=== PATIENT | male | born 1950 | race Caucasian/White ===

== ENCOUNTER 2022-07-10 17:55 | Inpatient (IN) ==
[2022-07-12] MEDS ORDERED: Acetaminophen 325 MG TABLET PO PRN (12:54)
[2022-07-12] MEDS ORDERED: Ondansetron ODT 4 MG TAB.RAPDIS SL PRN (12:54)
[2022-07-12] MEDS ORDERED: D5% in Water 1,000 ML IVC PRN (12:56)
[2022-07-12] MEDS ORDERED: Dextrose Gel 15 GM/37.5 ML TUBE PO PRN ×2 (12:56)
[2022-07-12] MEDS ORDERED: *HR* Dextrose 50 % in Water (Syg) 50 ML SYRINGE IVP PRN (12:56)
[2022-07-12 13:53] LABS: Bilirubin,Urine Negative (Negative); Blood,Urine Small (Negative); Clarity,Urine Clear (Clear); Color,Urine Yellow (Yellow); Glucose,Urine (UA) Normal (Normal); Ketones,Urine 15 mg/dL (Negative); Leukocyte Esterase,Urine Negative (Negative); Nitrite,Urine Negative (Negative); Protein,Urine Negative (Neg-Trace); Specific Gravity,Urine >= 1.030 (1.010-1.025); Urobilinogen,Urine Normal (Normal)
[2022-07-12 13:58] LABS: Squamous Epithelial Cell,Urine Few per hpf (None-Few); WBC,Urine 0-3 per hpf (0-3)
[2022-07-12 13:59] LABS: Bacteria,Urine None Seen per hpf (None-Few); Transitional Epi Cells,Urine Few per hpf (None-Few)
[2022-07-12] MEDS: diazePAM 2 MG TABLET PO PRN ×2 (14:29→22:08)
[2022-07-12] MEDS: *HR* OxyCODONE/APAP 5/325 TABLET PO PRN ×2 (15:02→22:06)
[2022-07-12] MEDS: *HR* Metformin 500 MG TABLET PO SCH (17:27)
[2022-07-12] MEDS: tiZANidine 4 MG TABLET PO PRN (17:28)
[2022-07-12] MEDS: *HR* Glimepiride 4 MG TABLET PO SCH (17:28)
[2022-07-12] MEDS: Insulin LISPRO 300 UNITS/3 ML VIAL SUBQ SCH ×2 (17:28→22:14)
[2022-07-12] MEDS: Pregabalin 75 MG CAPSULE PO SCH (22:08)
[2022-07-12] MEDS: Carbidopa/Levodopa 25/100 TABLET PO SCH (22:09)
[2022-07-12] MEDS: Sennosides 8.6 MG TABLET PO SCH (22:09)
[2022-07-13] MEDS: tiZANidine 4 MG TABLET PO PRN ×2 (02:39→16:40)
[2022-07-13] MEDS: *HR* OxyCODONE/APAP 5/325 TABLET PO PRN ×3 (02:39→20:55)
[2022-07-13 04:27] LABS: Hematocrit 23.5 % (37.5-50.1); Hemoglobin 7.8 g/dL (12.9-16.9); Mean Corpuscular HGB Conc 33.2 g/dL (31.6-35.5); Mean Corpuscular Volume 90.4 fL (83.0-100.0); Mean Platelet Volume 9.4 fL (9.4-12.4); Platelet Count 155 K/mcL (140-400); Red Cell Distribution Width 14.3 % (11.5-14.5); White Blood Count 4.1 K/mcL (4.3-11.1)
[2022-07-13 04:43] LABS: Alanine Aminotransferase 7 Units/L (7-52); Albumin 3.1 g/dL (3.5-5.7); Albumin/Globulin Ratio 1.4 (1.1-2.2); Alkaline Phosphatase 52 Units/L (34-104); Aspartate Amino Transferase 24 Units/L (13-39); BUN/Creatinine Ratio 24 (6-26); Bilirubin,Total 0.3 mg/dL (0.3-1.0); Blood Urea Nitrogen 17 mg/dL (8-23); Calcium 8.2 mg/dL (8.6-10.3); Carbon Dioxide 26 mEq/L (23-29); Chloride 107 mEq/L (98-107); Globulin 2.2 g/dL (2.4-3.5); Glucose 120 mg/dL (70-105); Magnesium 2.1 mg/dL (1.6-2.6); Osmolality,Calculated 293 (280-300); Potassium 3.8 mEq/L (3.5-5.1); Sodium 140 mEq/L (136-145); Total Protein 5.3 g/dL (6.4-8.9)
[2022-07-13] MEDS: *HR* Enoxaparin 40 MG/0.4 ML SYRINGE SQ SCH (04:44)
[2022-07-13] MEDS: Pregabalin 75 MG CAPSULE PO SCH ×2 (10:17→20:56)
[2022-07-13] MEDS: lisinopriL 5 MG TABLET PO SCH (10:17)
[2022-07-13] MEDS: *HR* Glimepiride 4 MG TABLET PO SCH ×2 (10:18→16:40)
[2022-07-13] MEDS: *HR* Metformin 500 MG TABLET PO SCH ×2 (10:18→16:40)
[2022-07-13] MEDS: Carbidopa/Levodopa 25/100 TABLET PO SCH ×2 (10:18→20:56)
[2022-07-13] MEDS: Sennosides 8.6 MG TABLET PO SCH ×2 (10:18→20:55)
[2022-07-13] MEDS: Insulin LISPRO 300 UNITS/3 ML VIAL SUBQ SCH ×4 (10:19→20:56)
[2022-07-13 12:42] LABS: Estimated Average Glucose 157 mg/dl; Hemoglobin A1C 7.1 %
[2022-07-13] MEDS: diazePAM 2 MG TABLET PO PRN (20:56)
[2022-07-14 04:39] LABS: Basophils % 0.4 %; Eosinophils # 0.1 K/mcL (0.0-0.6); Eosinophils % 1.6 %; Hematocrit 24.8 % (37.5-50.1); Hemoglobin 7.7 g/dL (12.9-16.9); Immature Granulocytes % 2.3 % (0-4); Lymphocytes # 0.8 K/mcL (0.6-4.6); Lymphocytes % 15.2 %; Mean Corpuscular Hemoglobin 29.2 pg (28.0-33.3); Mean Corpuscular Volume 93.9 fL (83.0-100.0); Mean Platelet Volume 9.6 fL (9.4-12.4); Monocytes # 0.7 K/mcL (0.0-1.3); Monocytes % 13.3 %; Neutrophils # 3.5 K/mcL (1.6-8.9); Nucleated Red Blood Cells 0.4 /100 WBC (0); Platelet Count 163 K/mcL (140-400); Red Blood Count 2.64 M/mcL (4.19-5.50); Red Cell Distribution Width 14.6 % (11.5-14.5); Segmented Neutrophils % 67.2 %; White Blood Count 5.1 K/mcL (4.3-11.1)
[2022-07-14 04:50] LABS: BUN/Creatinine Ratio 22 (6-26); Blood Urea Nitrogen 17 mg/dL (8-23); Carbon Dioxide 23 mEq/L (23-29); Chloride 108 mEq/L (98-107); Glucose 112 mg/dL (70-105); Osmolality,Calculated 290 (280-300); Potassium 3.8 mEq/L (3.5-5.1); Sodium 139 mEq/L (136-145)
[2022-07-14] MEDS: *HR* Enoxaparin 40 MG/0.4 ML SYRINGE SQ SCH (05:15)
[2022-07-14] MEDS: Insulin LISPRO 300 UNITS/3 ML VIAL SUBQ SCH ×4 (08:48→19:53)
[2022-07-14] MEDS: lisinopriL 5 MG TABLET PO SCH (08:49)
[2022-07-14] MEDS: Carbidopa/Levodopa 25/100 TABLET PO SCH ×2 (08:49→19:59)
[2022-07-14] MEDS: *HR* Glimepiride 4 MG TABLET PO SCH ×2 (08:49→16:37)
[2022-07-14] MEDS: Sennosides 8.6 MG TABLET PO SCH ×2 (08:49→20:00)
[2022-07-14] MEDS: Pregabalin 75 MG CAPSULE PO SCH ×2 (08:49→20:00)
[2022-07-14] MEDS: *HR* Metformin 500 MG TABLET PO SCH ×2 (08:49→16:37)
[2022-07-14] MEDS: *HR* OxyCODONE/APAP 5/325 TABLET PO PRN ×2 (08:52→19:59)
[2022-07-15 04:31] LABS: Hematocrit 25.6 % (37.5-50.1); Mean Corpuscular HGB Conc 31.3 g/dL (31.6-35.5); Mean Corpuscular Hemoglobin 28.5 pg (28.0-33.3); Mean Corpuscular Volume 91.1 fL (83.0-100.0); Mean Platelet Volume 9.3 fL (9.4-12.4); Platelet Count 206 K/mcL (140-400); Red Blood Count 2.81 M/mcL (4.19-5.50); Red Cell Distribution Width 14.5 % (11.5-14.5); White Blood Count 6.4 K/mcL (4.3-11.1)
[2022-07-15 04:45] LABS: BUN/Creatinine Ratio 23 (6-26); Blood Urea Nitrogen 18 mg/dL (8-23); Calcium 8.4 mg/dL (8.6-10.3); Carbon Dioxide 28 mEq/L (23-29); Chloride 105 mEq/L (98-107); Glucose 108 mg/dL (70-105); Osmolality,Calculated 290 (280-300); Potassium 3.8 mEq/L (3.5-5.1); Sodium 139 mEq/L (136-145)
[2022-07-15] MEDS: *HR* Enoxaparin 40 MG/0.4 ML SYRINGE SQ SCH (04:50)
[2022-07-15] MEDS: *HR* OxyCODONE/APAP 5/325 TABLET PO PRN ×2 (06:05→20:20)
[2022-07-15] MEDS: diazePAM 2 MG TABLET PO PRN ×2 (06:05→20:20)
[2022-07-15 08:03] LABS: Iron < 10 mcg/dL (65-175); Transferrin 193 mg/dL (203-362)
[2022-07-15] MEDS: Insulin LISPRO 300 UNITS/3 ML VIAL SUBQ SCH ×4 (08:04→20:11)
[2022-07-15] MEDS: Sennosides 8.6 MG TABLET PO SCH ×2 (08:05→20:22)
[2022-07-15] MEDS: *HR* Glimepiride 4 MG TABLET PO SCH ×2 (08:05→17:04)
[2022-07-15] MEDS: lisinopriL 5 MG TABLET PO SCH (08:05)
[2022-07-15] MEDS: Carbidopa/Levodopa 25/100 TABLET PO SCH ×2 (08:05→20:22)
[2022-07-15] MEDS: Pregabalin 75 MG CAPSULE PO SCH ×2 (08:06→20:21)
[2022-07-15] MEDS: *HR* Metformin 500 MG TABLET PO SCH ×2 (08:06→17:04)
[2022-07-15 08:27] LABS: Folate 18.1 ng/mL (3.0-16.0)
[2022-07-15] MEDS ORDERED: polyethylene glycoL 3350 17 GM POWD.PACK PO PRN (12:24)
[2022-07-15] MEDS: polyethylene glycoL 3350 17 GM POWD.PACK PO SCH (17:06)
[2022-07-16] MEDS: *HR* Enoxaparin 40 MG/0.4 ML SYRINGE SQ SCH (05:26)
[2022-07-16] MEDS: Insulin LISPRO 300 UNITS/3 ML VIAL SUBQ SCH ×4 (07:34→20:36)
[2022-07-16] MEDS: *HR* Metformin 500 MG TABLET PO SCH ×2 (07:46→16:37)
[2022-07-16] MEDS: Carbidopa/Levodopa 25/100 TABLET PO SCH ×2 (07:46→20:37)
[2022-07-16] MEDS: Sennosides 8.6 MG TABLET PO SCH ×2 (07:46→20:37)
[2022-07-16] MEDS: lisinopriL 5 MG TABLET PO SCH (07:47)
[2022-07-16] MEDS: Pregabalin 75 MG CAPSULE PO SCH ×2 (07:47→20:36)
[2022-07-16] MEDS: *HR* Glimepiride 4 MG TABLET PO SCH ×2 (07:47→16:38)
[2022-07-16] MEDS: polyethylene glycoL 3350 17 GM POWD.PACK PO SCH (07:48)
[2022-07-16] MEDS: Cyanocobalamin (B-12) 1,000 MCG TABLET PO SCH (07:48)
[2022-07-16] MEDS: *HR* OxyCODONE/APAP 5/325 TABLET PO PRN ×3 (12:35→20:44)
[2022-07-17] MEDS: *HR* OxyCODONE/APAP 5/325 TABLET PO PRN ×3 (01:38→12:47)
[2022-07-17 04:19] LABS: Hematocrit 24.8 % (37.5-50.1); Hemoglobin 7.7 g/dL (12.9-16.9); Mean Corpuscular Hemoglobin 28.2 pg (28.0-33.3); Mean Corpuscular Volume 90.8 fL (83.0-100.0); Mean Platelet Volume 9.3 fL (9.4-12.4); Platelet Count 240 K/mcL (140-400); Red Blood Count 2.73 M/mcL (4.19-5.50); Red Cell Distribution Width 14.2 % (11.5-14.5)
[2022-07-17 04:35] LABS: BUN/Creatinine Ratio 26 (6-26); Blood Urea Nitrogen 21 mg/dL (8-23); Calcium 8.1 mg/dL (8.6-10.3); Carbon Dioxide 26 mEq/L (23-29); Chloride 106 mEq/L (98-107); Glucose 106 mg/dL (70-105); Osmolality,Calculated 295 (280-300); Sodium 141 mEq/L (136-145)
[2022-07-17] MEDS: *HR* Enoxaparin 40 MG/0.4 ML SYRINGE SQ SCH (05:28)
[2022-07-17] MEDS: Insulin LISPRO 300 UNITS/3 ML VIAL SUBQ SCH ×2 (08:15→11:56)
[2022-07-17] MEDS: Carbidopa/Levodopa 25/100 TABLET PO SCH (08:16)
[2022-07-17] MEDS: lisinopriL 5 MG TABLET PO SCH (08:16)
[2022-07-17] MEDS: *HR* Glimepiride 4 MG TABLET PO SCH (08:16)
[2022-07-17] MEDS: Cyanocobalamin (B-12) 1,000 MCG TABLET PO SCH (08:16)
[2022-07-17] MEDS: Sennosides 8.6 MG TABLET PO SCH (08:16)
[2022-07-17] MEDS: *HR* Metformin 500 MG TABLET PO SCH (08:17)
[2022-07-17] MEDS: Pregabalin 75 MG CAPSULE PO SCH (08:17)
[2022-07-17] MEDS: polyethylene glycoL 3350 17 GM POWD.PACK PO SCH (08:21)
[2022-07-17] MEDS: diazePAM 2 MG TABLET PO PRN (10:06)
[2022-07-17] MEDS ORDERED: *HR* Heparin 5,000 UNIT/ML VIAL IVP ONE (10:45)
[2022-07-17] MEDS ORDERED: Heparin 25,000UNIT/250ML 1/2NS 25,000 UNIT/250 ML IV.SOLN IVC SCH (10:45)
[2022-07-17] MEDS ORDERED: *HR* Heparin 5,000 UNIT/ML VIAL IVP PRN ×2 (10:45)
[2022-07-17 10:48] VITALS: BP 115/59; PULSE 75; RESP 18; TEMP 98.1; O2SAT 100
[2022-07-17] MEDS ORDERED: Nitroglycerin 0.4 MG TAB.SUBL SL PRN (10:58)
[2022-07-17] MEDS ORDERED: Aspirin 325 MG TABLET PO ONE (11:17)
[2022-07-17 11:24] LABS: Hematocrit 28.7 % (37.5-50.1); Mean Corpuscular HGB Conc 31.4 g/dL (31.6-35.5); Mean Corpuscular Hemoglobin 28.7 pg (28.0-33.3); Mean Corpuscular Volume 91.4 fL (83.0-100.0); Mean Platelet Volume 9.2 fL (9.4-12.4); Platelet Count 284 K/mcL (140-400); Red Blood Count 3.14 M/mcL (4.19-5.50); Red Cell Distribution Width 14.2 % (11.5-14.5); White Blood Count 7.8 K/mcL (4.3-11.1)
[2022-07-17 11:25] LABS: INR 1.2; Prothrombin Time 13.9 Seconds (9.4-12.1)
[2022-07-17 11:28] LABS: Activated Partial Thrombo Time 33.4 Seconds (26.0-36.0)
[2022-07-17 11:44] LABS: Heparin anti-factor XA UFH 0.14 IU/mL (0.30-0.70)
== END 2022-07-17 14:00 | disposition short-term general hospital (02) | DRG 552 ==
LOC: INPGRE 07-12 12:13
PROVIDERS: ADMIT Family Medicine; ATTEND Family Medicine